=== PATIENT | male | born 1960 | race Two or more races ===

== ENCOUNTER 2017-10-22 12:41 | Day surgery (SDC) | payer OTHER ==
[2017-10-22] MEDS ORDERED: MIDAZOLAM 1 MG/ML 2 ML INJ ×2 (13:51)
[2017-10-22] MEDS ORDERED: FENTAnyl 50 MCG/ML VIAL (13:51)
== END 2017-10-22 14:50 | disposition home or self-care (01) ==
LOC: GIL 12:41
DX: Z12.11 Encounter for screening for malignant neoplasm of colon (principal)
CPT/HCPCS: 45378